=== PATIENT | female | born 1975 | race Caucasian/White ===

== ENCOUNTER → 2016-06-02 | Outpatient (CLI) | payer BC ==
[2013-06-25 11:07] VITALS: BP 113/63
--- NOTE | 2016-06-02 15:41 | CT ---
STUDY: CT PARANASAL SINUSES WITHOUT CONTRAST HISTORY: Refractory sinusitis. Chronic sinus issues. Comparison: None. Technique: Multiple axial images of the paranasal sinuses were obtained without the administration o f IV contrast. Coronal and sagittal reformats were performed and reviewed. Automated exposure contr ol (AEC) was utilized to adjust the MA and/or kV. Findings: Axial images: Both maxillary sinuses, the sphenoid sinus, ethmoid air cells, frontal recesses, and f rontal sinus are predominately clear. No air-fluid levels are identified. There is no evidence of os teoneogenesis. The retro antral fat is clear. The nasal cavity is within normal limits. There is no significant nasal septal deviation. The nasal bone is intact. Reformatted images: The ethmoid roofs are symmetric. The lamina papyracea is intact bilaterally. The re is no evidence of orbital blowout. The ostiomeatal units are predominantly clear. No signficant o dontogenic abnormality is identified. Mastoid air cells and middle ear cavities are predominately clear. IMPRESSION: 1. No evidence of acute or chronic sinusitis at this time. 2. Normal appearing mastoid air cells and middle ear cavities bilaterally. Reported By:
== END ==
LOC: RAD 11:18
PROVIDERS: ATTEND Internal Medicine
DX: J01.80 Other acute sinusitis (principal)
CPT/HCPCS: 70486

== ENCOUNTER 2016-08-25 07:43 | Day surgery (SDC) | payer BC ==
[2016-08-25] MEDS ORDERED: D5 LR 1000 ML 1,000 ML IV ONE (07:48)
[2016-08-25] MEDS ORDERED: DIPRIVAN VIAL 20 ML ONE (08:41)
[2016-08-25] MEDS ORDERED: FENTANYL INJ 100 mcg ONE (08:47)
[2016-08-25 09:13] VITALS: BP 121/73
== END 2016-08-25 09:15 | disposition home or self-care (01) ==
LOC: SURG1 07:43
PROVIDERS: ATTEND Internal Medicine Gastroenterology
PROC: 0DJD8ZZ Inspection of Lower Intestinal Tract, Via Natural or Artificial Opening Endoscopic (ICD-10-PCS; principal; 2016-08-25 16:30)
DX: Z80.0 Family history of malignant neoplasm of digestive organs (principal); K64.0 First degree hemorrhoids
CPT/HCPCS: A4217; J3010; J3490; J7120

== ENCOUNTER → 2016-11-28 | Outpatient (CLI) | payer BC ==
--- NOTE | 2016-11-28 17:31 | MG ---
Examination: Bilateral screening mammogram. Clinical history: Routine screening. Technique: Digital CC and MLO views of both breasts were obtained. Implant displaced views of both b reasts were also obtained. Computer aided detection analysis was performed and used during the inter pretation. Comparison: None available. Findings: The breasts are composed of scattered fibroglandular densities. Bilateral breast prostheses are norm al in appearance. Benign-appearing calcifications are noted in the breasts bilaterally. No suspicious mass, area of architectural distortion or suspicious cluster of microcalcifications is noted. Impression: 1. No mammographic evidence of malignancy. BI-RADS category 2-benign findings. Recommend routine annual screening mammogram. Diagnostic CAD was utilized and reviewed. * 0 (ZERO) - ASSESSMENT INCOMPLETE; ADDITIONAL IMAGING IS NEEDED. * 0C - ASSESSMENT INCOMPLETE, NEEDS ADDITIONAL IMAGING EVALUATION AND/OR PRIOR MAMMOGRAMS FOR COMPARI SON. * 1/1 (ONE) - NEGATIVE. * 2/II (TWO) - BENIGN FINDINGS. * 3/III (THREE) - PROBABLY BENIGN FINDING; SHORT INTERVAL FOLLOW-UP SUGGESTED. * 4/IV (FOUR) - SUSPICIOUS ABNORMALITY; BIOPSY SHOULD BE CONSIDERED. * 5/V - HIGHLY SUSPICIOUS OF MALIGNANCY; BIOPSY SHOULD BE PERFORMED. * 6/IV - KNOWN BIOPSY PROVEN MALIGNANCY-APPROPRIATE ACTION SHOULD BE TAKEN. A NEGATIVE X-RAY REPORT SHOULD NOT DELAY BIOPSY IF A DOMINANT OR CLINICALLY SUSPICIOUS MASS IS PRESENT; 4 TO 8 PERCENT OF CANCERS ARE NOT IDENTIFIED BY X-RAY. A NEGATIVE REPORT MAY REINFORCE THE CLINICAL IMPRESSION. ADENOSIS AND DENSE BREASTS MAY OBSCURE AN UNDERLYING NEOPLASM. Reported By:
== END ==
LOC: RAD 13:57
PROVIDERS: ATTEND Specialist
DX: Z12.31 Encounter for screening mammogram for malignant neoplasm of breast (principal)
CPT/HCPCS: 77067